=== PATIENT | male | born 1995 | race Caucasian/White ===

== ENCOUNTER 2017-06-29 02:25 | Emergency (ER) | payer OTHER ==
[~2017-06-29] VITALS: Ht 180.3 cm; Wt 69.4 kg
[2017-06-29 02:30] VITALS: TEMP 36.4; Ht 180.3 cm; Wt 69.4 kg
[2017-06-29] MEDS ORDERED: HYDR-5688 PO (03:41)
[2017-06-29] MEDS ORDERED: NORCO 5/325MG HOME PACK PO ONE (03:45)
[2017-06-29 04:23] VITALS: BP 128/86; PULSE 86; O2SAT 99
--- NOTE | 2017-06-29 07:55 | DIAGNOSTIC IMAGING REPORT ---
L ELBOW MIN 3 VIEWS ROUTINE CLINICAL HISTORY: 21 years-old Male presenting with Left elbow injury, fall onto wooden floor, pain and limited motion. TECHNIQUE: Frontal, radial, and lateral views of the left elbow were obtained. COMPARISON: None. FINDINGS: Image quality is suboptimal secondary to inability of the patient to extend the elbow. Obliquely oriented fracture of the radial head extending to the anterior proximal metaphysis. There is 6 to 7 mm of diastases at the fracture plane. An elbow joint effusion is noted. The main part of the radial head contiguous with the distal portion remains congruent with the capitellum. IMPRESSION: Mildly displaced obliquely oriented fracture of the radial head. Electronically signed by: Kenyon Salinas M.D. 06/29/2017 7:54 AM Dictated Date/Time: 06/29/2017 7:52 AM
--- NOTE | 2017-06-30 02:59 | EMERGENCY ROOM VISIT NOTE ---
ED Visit Note First contact with patient: 02:36 CHIEF COMPLAINT: Elbow pain HISTORY OF PRESENT ILLNESS: This 21-year-old male patient presents to the emergency department complaining of pain in the left elbow after wrestling with a friend. The patient states that he was doing MMA style wrestling with a friend, when he was lifted up, and dropped onto his right elbow.. The patient rates their pain as dull and 8/10. The patient has taken nothing for relief of the pain. The patient has not had previous fractures to this elbow. The patient does not have any numbness or tingling. The patient denies any other injuries. REVIEW OF SYSTEMS: A 6 system review of systems was completed with positives and pertinent negatives listed in the HPI. ALLERGIES: No known allergies MEDICATIONS: No chronic medications PMH: Otherwise healthy SOCIAL HISTORY: Lives locally PHYSICAL EXAM: Vital Signs: Reviewed Nurse's notes, vital signs stable. GENERAL : White male, in no acute distress, well-developed, well-nourished. SKIN: The skin was without rashes, erythema, edema, warmth, or bruising. Capillary reflex less than 3 seconds. MUSCULOSKELETAL: The patient is holding their elbow with the right hand. There is tenderness over the radial head of the left elbow. There is tenderness with supination and pronation of the left elbow. There is no tenderness of the shoulder, wrist, or hand. The patient is able to give a thumbs up, make an OK sign, and a #3 with their fingers. Radial pulse 2+ . NEURO: Patient was alert and oriented to person place and time. Normal sensation to light and sharp touch. L ELBOW MIN 3 VIEWS ROUTINE CLINICAL HISTORY: 21 years-old Male presenting with Left elbow injury, fall onto wooden floor, pain and limited motion. TECHNIQUE: Frontal, radial, and lateral views of the left elbow were obtained. COMPARISON: None. FINDINGS: Image quality is suboptimal secondary to inability of the patient to extend the elbow. Obliquely oriented fracture of the radial head extending to the anterior proximal metaphysis. There is 6 to 7 mm of diastases at the fracture plane. An elbow joint effusion is noted. The main part of the radial head contiguous with the distal portion remains congruent with the capitellum. IMPRESSION: Mildly displaced obliquely oriented fracture of the radial head. EMERGENCY DEPARTMENT COURSE: Physical exam and history were performed. Nursing notes and EMR were reviewed. The patient appears to have injured his left elbow about one hour ago. X-ray was obtained and does reveal a radial head fracture. The patient was placed in a splint with neurovascular status remaining intact. He was given a sling. The patient will need to follow with orthopedics for further care and management. Current/Historical Medications Scheduled PRN Hydrocodone/Acetaminophen 5MG/325MG (Franklin 5MG/325MG), 1-2 TABLET PO Q6 PRN for Pain Allergies Coded Allergies: No Known Allergies (Unverified , 06/29/17) Vital Signs Date Time Temp Pulse Resp B/P (MAP) Pulse Ox O2 Delivery O2 Flow Rate FiO2 06/29/17 04:23 86 18 128/86 99 06/29/17 02:30 36.4 95 18 136/86 99 Room Air Medications Administered Medications (Trade) Dose Ordered Sig/Mikal Route Start Time Stop Time Status Last Admin Dose Admin Acetaminophen/ Hydrocodone Bitart (Franklin 5/325mg Home Pack) 1 homepack UD ONCE PO 06/29/17 03:45 06/29/17 03:46 DC 06/29/17 04:45 1 HOMEPACK Departure Information Impression Primary Impression: Left radial head fracture Dispostion Home / Self-Care Condition GOOD Prescriptions Hydrocodone/Acetaminophen 5MG/325MG (Franklin 5MG/325MG) Tab 1-2 TABLET PO Q6 Y for Pain, #15 TAB For Initial Treatment Prov: Cisco Orlando PA-C 06/29/17 Referrals Rock Ramirez D.O. Forms HOME CARE DOCUMENTATION FORM, IMPORTANT VISIT INFORMATION Patient Instructions My [facility] [address], ED Fx Elbow, ED Compartment Syndrome At Risk For, ED RICE Additional Instructions You were seen and evaluated today on an emergency basis only. This is not a substitute for, or an effort to provide, complete comprehensive medical care. It is not possible to recognize and treat all injuries or illnesses in a single emergency department visit. For this reason it is recommended that you followup with [facility] , Dr. Ramirez's office, first thing Saturday morning by telephone to arrange a follow-up visit this week. Let them know you were in the emergency department to help make your appointment. For baseline pain relief you may alternate ibuprofen and acetaminophen every 4 hours for pain control. Take 600 mg ibuprofen (Advil) and then 4 hours later take 1000 mg acetaminophen (Tylenol). Do not take more than 3000 mg acetaminophen in a single day. Franklin (hydrocodone/acetaminophen) 5/325 mg every 6 hours as needed for worsening breakthrough pain. Do not drink or drive on [place]. This medication will likely make you tired. Do not take Franklin and Tylenol at the same time as both contain acetaminophen. Franklin may cause constipation. You may wish to take an [id number] stool softener like Colace if this occurs. Do not get the splint wet. Wear your sling for comfort. You are welcome to return to the emergency department anytime with new, worsening, or concerning symptoms.
== END 2017-06-29 04:24 | disposition home or self-care (01) ==
LOC: C.EDB 02:27 → C.EDC 04:24
DX: S52.122A Displaced fracture of head of left radius, initial encounter for closed fracture (principal); W19.XXXA Unspecified fall, initial encounter

== ENCOUNTER → 2017-07-19 | Day surgery (SDC) | payer OTHER ==
[2017-07-17 15:07] VITALS: Ht 182.9 cm; Wt 70.5 kg
--- NOTE | 2017-07-18 15:47 | History and Physical: Surg Cnt ---
History & Physical Date Jul 18, 2017. Chief Complaint left elbow pain History of Present Illness The patient is a 21 year old male with complaints of left elbow pain s/p fall. Evaluated at the [facility], xrays were obtained, splinted, provided with sling, and advised to follow up with orthopedics. Denies prior injury to this extremity. Denies numbness or tingling. Pain controlled with prescribed medications. Past Medical/Surgical History Past medical history: 1. Negative for currently treatable pathology Past surgical history: 1. Negative Social history: 1. [employer] student, lives in a safe environment, denies ETOH, tobacco, or illegal drug use Family history: 1. Non-contributory Additional History Hepatic Disease: No Endocrine Disorder: No Kidney Disease: No Hypertension: No Heart Disease: No Bleeding Tendencies: No Infectious Diseases: No Other: ROS: Denies headache, chest pain, shortness of breath, fevers, chills, night sweats Allergies Coded Allergies: No Known Allergies (Unverified , 07/17/17) Home Medications No Active Prescriptions or Reported Meds Physical Examination Skin: warm/dry, no rash Eyes: normal inspection ENT: normal ENT inspection Head: normocephalic, atraumatic Respiratory/Chest: lungs clear, normal breath sounds, no respiratory distress Cardiovascular: regular rate, rhythm, no edema, no murmur Abdomen / GI: normal bowel sounds, non tender Extremities: + pertinent finding (Left upper extremity immobilized in a sugar tong spling with sling. His fingers are exposed and mobile. No swelling, ecchymosis, or erythema in the fingers, capillary refill under 2 seconds, good sensation with light touch, shoulder atraumatic. ) Neurologic/Psych: no motor/sensory deficits, alert, oriented x 3 Diagnosis Left radial head fracture Plan of Treatment William will undergo an Open reduction internal fixation of left radial head fracture versus radial head replacement that is scheduled for 07/19/[address] Cooper Tamayo MD from [facility]. William was provided Percocet for post -op pain. He will follow up with Dr. Tamayo 2 weeks after surgery for suture removal. No preop labs required. No other questions or concerns.
[~2017-07-19] VITALS: Ht 182.9 cm; Wt 70.5 kg
[~2017-07-19] MED LIST: ATROPINE SULFATE 0.1 MG/ML 5ML SYR IV PRN; BUPIVACAINE 0.5 % 5 MG/1 ML MPF 30ML VIAL ONE; CEFAZOLIN 1000MG IV PUSH 5 ML IV SCH; DEXAMETHASONE SOD INJ 4 MG/ML VIAL ONE; EpHEDrine SULFATE INJ 50 MG/ML AMP IV PRN; FENTANYL CITRATE INJ 50 MCG/1 ML 2 ML VIAL IV PRN; FENTANYL CITRATE INJ 50 MCG/1 ML 2 ML VIAL ONE; LACTATED RINGER'S 1000ML 1,000 ML IV SCH; LIDOCAINE HCL 2% 2 ML VIAL (20MG/ML) ONE; LIDOCAINE/EPINEPHRINE 1% INJ 50 ML VIAL ONE; METOCLOPRAMIDE HCL INJ 5 MG/ML 2 ML VIAL IV PRN; MIDAZOLAM HCL 1 MG/ML 2ML VIAL ONE; MoRPHine SULFATE 4 MG/ML 1 ML CARP\\VIAL IV PRN; ONDANSETRON INJ 2 MG/ML 2 ML VIAL IV PRN; ONDANSETRON INJ 2 MG/ML 2 ML VIAL ONE; OXYCODONE/ACETAMINOPHEN 5-325 TAB PO PRN; PROPOFOL IV EMULSION 10 MG/ML 20 ML VIAL IV ONE; SODIUM CHLORIDE 0.9% 1000ML 1,000 ML IV SCH
--- NOTE | 2017-07-19 08:29 | History & Physical Bridge - SC ---
H&P Re-Evaluation Bridge Note: I have examined the patient, reviewed the History & Physical and in the interval since the performance of the History & Physical I have noted the following changes of clinical significance: No changes noted
--- NOTE | 2017-07-19 09:31 | Discharge Instructions-SurgCtr ---
Discharge Instructions Date of Service Jul 19, 2017. Visit Reason for Visit: Left Radial Head Fracture Discharge Discharge Diagnosis / Problem: Left radial head fracture Discharge Goals Goal(s): Decrease discomfort, Improve function, Increase independence Activity Recommendations Activity Limitations: as noted below Lifting Limitations: until after follow-up appointment Exercise/Sports Limitations: until after follow-up appointment Shower/Bathe: keep incision dry Driving or Machine Use: when clearedy by Dr. Tamayo Weightbearing Status: Left non-weightbearing Anesthesia . Post Anesthesia Instructions: If you have had General Anesthesia or IV Sedation: * Do not drive today. * Resume driving when surgeon permits. * Do not make important decisions or sign legal documents today. * Call surgeon for: 1. Temperature elevations greater than 101 degrees F. 2. Uncontrollable pain. 3. Excessive bleeding. 4. Persistent nausea and vomiting. 5. Medication intolerance (nausea, vomiting or rash). * For nausea and vomiting use only clear liquids such as: tea, soda, bouillon until nausea subsides, then gradually increase diet as tolerated. * If you have any concerns or questions, call your surgeon's office. If physician is unavailable and it is an emergency, call 911 or go to the nearest emergency room. . Instructions / Follow-Up Instructions / Follow-Up DIET: * Resume previous diet. MEDICATIONS: * Please take your prescriptions as instructed at your pre-op appointment and/ or see medication discharge instructions listed above. * If concerns develop, call your physician's office at . SPECIAL CARE INSTRUCTIONS: * Ice/Elevate as instructed. * Keep dressing clean, dry, intact. * Your surgical extremity may be discolored due to prepping agents used on the skin. A bluish-green tint is a normal variant and should not cause alarm. Call your doctor at [phone] if: * Temperature above 101 degrees * Pain not relieved by pain medicine ordered * There is increased drainage or redness from any incision * You have any unanswered questions, problems or concerns. FOLLOW UP VISIT: * If not already scheduled, please call the office at to schedule a follow-up appointment. Diet Recommendations Home Diet: resume previous diet Procedures Procedures Performed: Left radial head fracture Pending Studies Studies pending at discharge: no Medical Emergencies . Who to Call and When: Medical Emergencies: If at any time you feel your situation is an emergency, please call 911 immediately. . Non-Emergent Contact Non-Emergency issues call your: Primary Care Provider . . "Provider Documentation" section prepared by Jose Malone. . [place] Drug Monitoring Program Search Results: no issues identified
--- NOTE | 2017-07-19 13:43 | [facility] Post Operative Brief Note ---
Immediate Operative Summary Operative Date Jul 19, 2017. Pre-Operative Diagnosis Left Radial Head Fracture Post-Operative Diagnosis Same Procedure(s) Performed Open Reduction Internal Fixation Left Radial Head Fracture Surgeon Dr. Sharif Tamayo Bead Cutter Surgeon(s) Dr. Kaylee Nolasco Estimated Blood Loss 30 cc Findings Comminuted Left radial head/neck fractures, with comminution of the articular surface, loss of central portion articular surface 4 x 4 mm. Fluids (cc crystalloids) 1200 Specimens None Drains n/a Anesthesia GEN Complication(s) None Disposition Recovery Room / PACU (Stable)
--- NOTE | 2017-07-19 13:46 | [facility] Operative Report ---
Operative Report Operative Date Jul 19, 2017. Pre-Operative Diagnosis Left Radial Head Fracture Post-Operative Diagnosis Same Procedure(s) Performed Open Reduction Internal Fixation Left Radial Head Fracture Surgeon Dr. Sharif Tamayo Pipe Blanks Cut Off Saw Operator Surgeon(s) Dr. Kaylee Nolasco Estimated Blood Loss 30 cc Findings Comminuted Left radial head/neck fractures, with comminution of the articular surface, loss of central portion articular surface 4 x 4 mm. Fluids (cc crystalloids) 1200 Specimens None Drains n/a Anesthesia GEN Complication(s) None Disposition Recovery Room / PACU (Stable) Implants 1) ALPS Small Proximal Radius plate (Adrian/Biomet). 2) 2.5 mm Cortical screw (20 mm). 3) 2.5 mm Locking screws (16 & 18 mm x 2). 4) 2.0 mm x 20 mm Headless Compression Screw (Acumed). Indications The patient is a 21 year old male, [id number], with left displaced radial head and neck fracture. After a lengthy discussion with the patient regarding their treatment options, I recommended that they undergo an ORIF of the left radial head/neck fracture. The risk of surgery were discussed and include but not limited to: bleeding, nerve damage, infection, failure of the hardware, mal-union, non-union, continued pain, progression of arthritis, decreased activity level, and DVT. They understood all the risks and benefits and wished to proceed with surgery. The informed consent was signed. Description of Procedure The patient was taken to the Operating Room and placed in the supine position on the operating table. After general anesthetic was administered a multidisciplinary time-out was performed identifying my initials on the left upper limb as the correct and operative limb. Prior to the incision being made , 1 gram of intravenous Ancef were given. The left arm was prepped and draped in the standard orthopaedic sterile fashion. The planned incision hockey stick incision centered over the radial head laterally approximately 7 cm in length was marked as was the radial head, olecranon tip and lateral epicondyles. The incision was injected with a 50:50 mixture of 1% Lidocaine plain and 0.5% Marcaine with epinephrine for a total of 16 cc. The incision was carried through the skin down to some scar tissue overlying the extensor tendon fascia. This was carefully dissected to identify the Anconeus and ECU tendons. The interval between these 2 tendons was carried down to the supinator. The supinator was incised with the arm in full pronation to protect the PIN. The capsule was incised as was the annular ligament to reveal the elbow joint and the fracture radial head and neck. Homans were placed gently around the proximal radius. The radial head fracture was in 2 main components. There was some central loss of articular cartilage. Any callus or fracture hematoma or fibrous material was debrided and removed with a dental pick, sharp dissection, rongeur, and irrigation and suction. Several K wires were used to reduce the radial head fracture fragments together and to the shaft after reducing manually. A 2.0 mm AccuTrax mini headless compression screw was placed to compress the fragments together. The ALPS plate was contoured to fit the radial neck and head, due to the comminution there was concern about placing the distal screws and initially was attempted to be placed as a buttress. A single nonlocking and 2 locking screws were placed in the shaft through the plate. X-rays were obtained and there was still a noted step-off of the articular surface. The headless compression screw was removed and the 2 fragments were re-reduced and held in place with K wires that appeared as anatomic as possible considering the loss of articular surface centrally. The Headless compression screw was placed and countersunk below the articular surface. Improved reduction, a single locking screw was able to be placed through the plate and the reduced radial head. The other 2 arms of the plate were used as a buttress. Final x-rays were obtained both AP and lateral. There was full elbow flexion and extension as well as forearm pronation and supination. The wound was copiously. The capsule, annular ligament, and deep fascia were closed with 0 Vicryl, covering the plate. The supinator fascia fascia and the interval between the Anconeus and ECU were closed with 2-0 Vicryl. The subcutaneous layer was closed with 3-0 Vicryl. The skin was closed with corinne. The incision was covered with Xeroform, 4x4's, ABD, sterile cast padding, and an LIZETH. A hinged range of motion brace was placed with his arm in pronation and 90 of flexion as well as a sling. The sponge and needle counts were correct. POST-OP INSTRUCTIONS: The patient will continue with the brace. He will work with physical therapy on gradually increasing his range of motion of his hand must remain pronated. Pain medicine was given and to be used as needed. The patient will follow-up with me in 10-15 days. I attest to the content of the Intraoperative Record and any orders documented therein. Any exceptions are noted below.
[2017-07-19 14:10] VITALS: TEMP 37.3
[2017-07-19 14:55] VITALS: BP 138/78; PULSE 71; O2SAT 100
--- NOTE | 2017-07-19 15:03 | Anesthesia Progress Nt - [facility] ---
Anesthesia Post Op Note Date & Time Jul 19, 2017 at 15:03 Vital Signs Pain Intensity: 4 Vital Signs Past 12 Hours Date Time Temp Pulse Resp B/P (MAP) Pulse Ox O2 Delivery O2 Flow Rate FiO2 07/19/17 14:55 71 16 138/78 (98) 100 Room Air 07/19/17 14:36 70 20 158/73 (101) 98 Room Air 07/19/17 14:15 97 17 143/91 95 07/19/17 14:15 92 17 07/19/17 14:10 88 13 136/80 98 07/19/17 14:10 89 13 07/19/17 14:10 37.3 88 14 136/80 98 Room Air 07/19/17 14:05 74 14 146/77 97 07/19/17 14:05 75 14 07/19/17 14:01 144/68 07/19/17 14:00 68 11 99 07/19/17 14:00 79 11 07/19/17 13:55 86 13 07/19/17 13:55 85 13 132/71 100 07/19/17 13:50 83 13 140/70 99 07/19/17 13:50 82 13 07/19/17 13:46 137/65 07/19/17 13:45 78 11 100 07/19/17 13:45 86 11 07/19/17 13:41 135/75 07/19/17 13:40 37.1 93 14 135/75 99 Mask 7 07/19/17 07:35 37.0 52 16 111/69 (83) 100 Room Air Notes Mental Status: alert / awake / arousable, participated in evaluation Pt Amnestic to Procedure: Yes Nausea / Vomiting: adequately controlled Pain: adequately controlled Airway Patency, RR, SpO2: stable & adequate BP & HR: stable & adequate Hydration State: stable & adequate Anesthetic Complications: no major complications apparent
== END | disposition home or self-care (01) ==
LOC: X.SURG 07:20
PROVIDERS: ATTEND Orthopaedic Surgery Sports Medicine
DX: S52.122A Displaced fracture of head of left radius, initial encounter for closed fracture (principal); S52.131A Displaced fracture of neck of right radius, initial encounter for closed fracture; W19.XXXA Unspecified fall, initial encounter

== ENCOUNTER → 2017-08-29 | Outpatient (CLI) | payer OTHER | END | disposition home or self-care (01) | LOC: C.RDSM 15:45 | PROVIDERS: ATTEND Orthopaedic Surgery Sports Medicine | DX: S52.122D Displaced fracture of head of left radius, subsequent encounter for closed fracture with routine healing (principal); X58.XXXD Exposure to other specified factors, subsequent encounter ==

== ENCOUNTER → 2017-10-23 | Outpatient (CLI) | payer OTHER | END | disposition home or self-care (01) | LOC: C.RDSM 10:50 | PROVIDERS: ATTEND Orthopaedic Surgery Sports Medicine | DX: Z09 Encounter for follow-up examination after completed treatment for conditions other than malignant neoplasm (principal) ==

== ENCOUNTER 2018-01-04 01:05 | Emergency (ER) | payer OTHER ==
[~2018-01-04] VITALS: Ht 185.4 cm; Wt 67.0 kg
[2018-01-04 01:12] VITALS: TEMP 36.3; Ht 185.4 cm; Wt 67.0 kg
--- NOTE | 2018-01-04 01:18 | EMERGENCY ROOM VISIT NOTE ---
History Report prepared by Raul: Alessandra Chicas Under the Supervision of: Dr. Dee Ulloa M.D. First contact with patient: 01:05 Chief Complaint: ALCOHOL OVERDOSE Stated Complaint: ALCOHOL OVERDOSE History of Present Illness The patient is a 22 year old male who presents to the Emergency Room with complaints of alcohol intoxication SENIOR PHYSICIAN. He was found by police. His friends were holding him up while he was stumbling. The patient keeps repeating that he is sorry and wants to see his parents. He is unsure if he fell, but does not believe he hurt himself. HPI is limited secondary to alcohol intoxication. Source of History: patient History Limited By: intoxication (alcohol) Onset: SENIOR PHYSICIAN Position: other (general) Quality: other (alcohol intoxication) Timing: other (persistent) Review of Systems ROS is limited secondary to alcohol intoxication. Past Medical & Surgical Medical Problems: (1) No Known Active Medical Problems Family History No pertinent family history Social History Alcohol Use: heavy Housing Status: lives with roommate Occupation Status: [employer] student Current/Historical Medications Scheduled Multivitamin (Multivitamin), 1 TAB PO DAILY Allergies Coded Allergies: No Known Allergies (Unverified , 01/04/18) Physical Exam Vital Signs Date Time Temp Pulse Resp B/P (MAP) Pulse Ox O2 Delivery O2 Flow Rate FiO2 01/04/18 10:11 104 16 109/63 97 01/04/18 09:01 74 16 104/61 01/04/18 08:31 93 16 108/61 97 Room Air 01/04/18 06:50 77 16 115/65 100 01/04/18 05:07 83 01/04/18 03:55 85 16 104/61 100 Room Air 01/04/18 02:49 95 16 123/69 100 Nasal Cannula 2.0 01/04/18 02:03 97 Nasal Cannula 2.0 01/04/18 01:27 92 20 132/75 94 Room Air 01/04/18 01:14 104 01/04/18 01:12 36.3 105 18 170/103 98 Room Air Physical Exam Vital signs reviewed. General: Odor of EtOH in the breath, disheveled 22-year-old male. No signs of trauma. HEENT: Mild scleral injection bilaterally, PERRLA, neck supple, dry mucous membranes. Conjunctiva are injected bilaterally. Cardiovascular: Regular rate and rhythm, no extra sounds. Pulmonary: Clear to auscultation bilaterally, normal work of breathing. Abdomen: Soft, nontender, nondistended, positive bowel sounds. Musculoskeletal: Upper and lower extremities atraumatic, no peripheral edema Skin: Warm, dry, no rash. Atraumatic. Neurologic: Patient is speaking, answers questions somewhat appropriately, speech is slurred. Medical Decision & Procedures Laboratory Results Test 01/04/18 01:22 Ethyl Alcohol mg/dL 279.0 mg/dl (0-3) Laboratory results per my review. ED Course 0110: Past medical records reviewed. The patient was evaluated in room A12B. A complete history and physical examination was performed. 0155: I reassessed the patient at this time. He requires oxygen. 0650: I reassessed the patient at this time. He is feeling better and resting comfortably. I discussed the results and treatment plan with the patient. I answered all pertaining questions that he had. He expressed understanding and verbalized agreement. The patient will be discharged home. Medical Decision Differential diagnosis: Etiologies such as alcohol intoxication, toxicologic, infection, hypoglycemia, electrolyte abnormalities, cardiac sources, intracerebral event, neurologic, as well as others were entertained. This pt was evaluated and appeared to be in no distress. Pt was placed on the cardiac monitor technician. Aspiration precautions were maintained. Pt was observed in the ED for many hours until he reached a more sober state. Pt was d/c to an uber with instructions to f/u with [facility]. He will return to the ED for worsening of symptoms or any medical concerns. Medication Reconcilliation Current Medication List: was personally reviewed by me Blood Pressure Screening Patient's blood pressure: Elevated blood pressure Blood pressure disposition: Elevated BP felt to be situational Impression Primary Impression: Alcoholic intoxication Scribe Attestation The scribe's documentation has been prepared under my direction and personally reviewed by me in its entirety. I confirm that the note above accurately reflects all work, treatment, procedures, and medical decision making performed by me. Departure Information Dispostion Home / Self-Care Referrals [facility] Forms HOME CARE DOCUMENTATION FORM, IMPORTANT VISIT INFORMATION Patient Instructions [facility]: [employer] Students and Alcohol Related Visits, My [facility] Additional Instructions Diagnosis: Alcohol intoxication Drink plenty of clear liquids, such as water or Gatorade. Tylenol 650 mg every 6 hours as needed for pain. Follow-up with [facility] as directed. Avoid excessive alcohol consumption. Return to emergency for worsening of symptoms or medical concerns.
[2018-01-04 02:03] VITALS: O2SAT 97
[2018-01-04] MEDS ORDERED: MULT-506 PO (06:47)
[2018-01-04 10:11] VITALS: BP 109/63; PULSE 104; O2SAT 97
== END 2018-01-04 10:12 | disposition home or self-care (01) ==
LOC: EDBD 01:05 → MERGE 01:09 → C.EDA 01:09
DX: F10.929 Alcohol use, unspecified with intoxication, unspecified (principal); Y90.8 Blood alcohol level of 240 mg/100 ml or more; R03.0 Elevated blood-pressure reading, without diagnosis of hypertension